=== PATIENT | male | born 1935 | race African-American/Black ===

== ENCOUNTER 2023-02-23 20:12 | Emergency (ER) | payer MEDICARE, BC ==
[~2023-02-23] VITALS: Ht 170.2 cm; Wt 79.5 kg
[2023-02-23] MEDS ORDERED: LIDOCAINE W/ EPINEPHRINE 1.5 % INJ 5ML AMP IJ ONE (22:15)
[2023-02-23] MEDS ORDERED: CEPH500C PO (23:06)
[2023-02-23] MEDS ORDERED: TETANUS-DIPTH-ACEL PERTUSSIS 0.5ML SYR Tdap IM ONE (23:15)
[2023-02-23] MEDS ORDERED: ONDANSETRON ODT 4 MG TAB PO ONE (23:15)
[2023-02-23] MEDS ORDERED: HYDROcodone-ACET 5/325MG TAB PO ONE (23:15)
[2023-02-23 23:35] VITALS: BP 134/59; PULSE 78; RESP 19; TEMP 98.4; O2SAT 96
== END 2023-02-23 23:35 | disposition home or self-care (01) ==
LOC: ER 20:12
DX: S81.811A Laceration without foreign body, right lower leg, initial encounter (principal); Z85.9 Personal history of malignant neoplasm, unspecified; Z98.890 Other specified postprocedural states; Z79.899 Other long term (current) drug therapy; W22.8XXA Striking against or struck by other objects, initial encounter; Y93.01 Activity, walking, marching and hiking; Y92.89 Other specified places as the place of occurrence of the external cause; Y99.8 Other external cause status
CPT/HCPCS: 12004; 73590; 90471; 90715; 99283; Q0162

== ENCOUNTER 2023-03-06 14:47 | Emergency (ER) | payer MEDICARE, BC ==
[~2023-03-06] VITALS: Ht 170.2 cm; Wt 76.4 kg
[~2023-03-06 14:47] MED LIST: CEPH500C PO
[2023-03-06 18:25] VITALS: BP 159/54; PULSE 71; RESP 18; TEMP 98.1; O2SAT 96
[2023-03-06] MEDS ORDERED: CEPH500C PO (18:48)
== END 2023-03-06 18:53 | disposition home or self-care (01) ==
LOC: ER 14:47
DX: S81.811D Laceration without foreign body, right lower leg, subsequent encounter (principal); X58.XXXD Exposure to other specified factors, subsequent encounter

== ENCOUNTER 2023-03-21 15:23 | Emergency (ER) | payer OTHER, BC ==
[~2023-03-21] VITALS: Ht 170.2 cm; Wt 76.8 kg
[2023-03-21 15:51] VITALS: BP 147/61; PULSE 74; RESP 18; TEMP 98.7; O2SAT 95
== END 2023-03-21 15:58 | disposition home or self-care (01) ==
LOC: ER 15:23
DX: S81.811D Laceration without foreign body, right lower leg, subsequent encounter (principal); Z79.899 Other long term (current) drug therapy; X58.XXXD Exposure to other specified factors, subsequent encounter

== ENCOUNTER 2024-05-10 12:38 | Emergency (ER) | payer BC, OTHER ==
[~2024-05-10] VITALS: Ht 170.2 cm; Wt 79.6 kg
[2024-05-10] MEDS: cefTRIAXone SOD 1,000 MG VL IM ONE (15:00)
[2024-05-10 15:07] VITALS: BP 133/64; TEMP 99.9
[2024-05-10 15:15] VITALS: PULSE 124; RESP 16; O2SAT 96
[2024-05-10 15:56] LABS: Basophils # (auto) 0.1 10 ^3/uL (0-0.2); Basophils % (auto) 0.5 % (0.0-2.0); Eosinophils # (auto) 0 10 ^3/uL (0-0.8); Hematocrit 39.8 % (41.0-53.0); Lymphocytes # (auto) 1.2 10 ^3/uL (0.4-5.4); Lymphocytes % (auto) 7.1 % (10.0-50.0); Mean Corpuscular Hemoglobin 31.1 pg (28.0-32.0); Mean Corpuscular Hgb Conc. 32.7 g/dL (32.0-36.0); Mean Corpuscular Volume 95.2 fL (80.0-100.0); Monocytes % (auto) 12.3 % (0.0-12.0); Neutrophils # (auto) 13.1 10 ^3/uL (1.6-8.6); Neutrophils % (auto) 80.1 % (37.0-80.0); Nucleated Red Blood Cells % 0.1 %; Platelet Count (auto) 193 10^3/uL (140-450); Red Blood Cells 4.18 10^6/uL (4.5-5.90); White Blood Cell 16.3 10^3/uL (4.4-10.8)
[2024-05-10] MEDS ORDERED: AUG875T PO (16:07)
== END 2024-05-10 19:07 | disposition home or self-care (01) ==
LOC: ER 12:38
DX: H92.13 Otorrhea, bilateral (principal); H91.8X3 Other specified hearing loss, bilateral; Z98.890 Other specified postprocedural states; Z79.899 Other long term (current) drug therapy
CPT/HCPCS: 36415; 85025; 96372; 99283; J0696